=== PATIENT | female | born 1990 | race Caucasian/White ===

== ENCOUNTER → 2017-09-18 | Outpatient (CLI) | payer OTHER ==
[~2017-09-18] MED LIST: BUPRENORPHINE HC2 MG SL; CEPH500 PO; CYCL10 PO; IBUP600 PO; Norco 5-325 Ta1 EACH PO; Percocet 5-3251 EACH PO; Prednisone20 MG PO; Robaxin500 MG PO; SERT25 PO; Verotin-Gr Cap1 EACH PO; Zofran Odt8 MG SL
[2017-09-18 12:56] LABS: U Buprenorphine Screen DETECTED; U Cannabinoids Screen DETECTED
[2017-09-18 12:57] LABS: U Amphetamine Screen Not Detected; U Barbituate Screen Not Detected; U Benzodiazapine Screen Not Detected; U Cocaine Screen Not Detected; U Methadone Screen Not Detected; U Methamphetamine Screen Not Detected; U Opiates Screen Not Detected; U Oxycodone Screen Not Detected; U Phencyclidine Screen Not Detected; U Propoxyphene Screen Not Detected
[2017-09-20 22:30] LABS: Norbuprenorphine GCMS 486 ng/mL (NOTDET)
== END | disposition home or self-care (01) ==
LOC: LAB 10:48
PROVIDERS: Obstetrics & Gynecology
DX: F11.21 Opioid dependence, in remission (principal)
CPT/HCPCS: G0480

== ENCOUNTER → 2017-11-12 | Outpatient (CLI) | payer OTHER ==
[2017-11-12 12:49] LABS: U Amphetamine Screen Not Detected; U Barbituate Screen Not Detected; U Benzodiazapine Screen DETECTED; U Buprenorphine Screen DETECTED; U Cannabinoids Screen DETECTED; U Cocaine Screen Not Detected; U Methadone Screen Not Detected; U Methamphetamine Screen Not Detected; U Opiates Screen Not Detected; U Oxycodone Screen Not Detected; U Phencyclidine Screen Not Detected; U Propoxyphene Screen Not Detected
[2017-11-13 21:57] LABS: Alpha Hyrdroxyalprazolam 116.1 ng/mL (NOTDET); Alpha hydroxytriazolam Not Detected (NOTDET); Alprazolam 22.3 ng/mL (NOTDET); Confirm Clonazepam LC/MS Not Detected (NOTDET); Confirm Flunitrazepam LC/MS Not Detected (NOTDET); Diazepam Not Detected (NOTDET); Flurazepam Not Detected (NOTDET); Lorazepam Not Detected (NOTDET); Midazolam Not Detected (NOTDET); Temazepam Not Detected (NOTDET)
[2017-11-14 04:47] LABS: Norbuprenorphine GCMS 463 ng/mL (NOTDET)
== END ==
LOC: LAB 11:34
PROVIDERS: Obstetrics & Gynecology
DX: F11.21 Opioid dependence, in remission (principal)
CPT/HCPCS: G0480

== ENCOUNTER → 2017-11-21 | Outpatient (CLI) | payer OTHER ==
[2017-11-21 16:26] LABS: BASOPHILS ABSOLUTE AUTO 0.04 K/mm3 (0.00-0.23); BASOPHILS PERCENT AUTO 1 % (0-2); EOSINOPHILS ABSOLUTE AUTO 0.12 K/mm3 (0.00-0.68); EOSINOPHILS PERCENT AUTO 2 % (0-6); Hematocrit 39.3 % (33.0-51.0); Hemoglobin 13.3 g/dL (11.5-16.0); IMMATURE GRAN ABSOLUTE AUTO 0.01 K/mm3 (0.00-0.10); IMMATURE GRAN PERCENT AUTO 0 % (0-1); LYMPHOCYTES ABSOLUTE AUTO 2.26 K/mm3 (0.84-5.20); LYMPHOCYTES PERCENT AUTO 28 % (21-46); MONOCYTES ABSOLUTE AUTO 0.42 K/mm3 (0.16-1.47); MONOCYTES PERCENT AUTO 5 % (4-13); Mean Corpuscular HGB 28.4 pg (26.0-34.0); Mean Corpuscular HGB Conc 33.8 g/dL (31.5-36.5); Mean Corpuscular Volume 84 fL (80-100); Mean Platelet Volume 10.5 fL (9.1-12.4); NEUTROPHILS ABSOLUTE AUTO 5.18 K/mm3 (1.96-9.15); NEUTROPHILS PERCENT AUTO 65 % (41-73); Platelet Count 257 K/mm3 (150-400); RDW Coefficient Variation 12.9 % (11.7-14.2); RDW Standard Deviation 39.2 fL (35.1-46.3); Red Blood Cell Count 4.69 M/mm3 (3.80-5.20); White Blood Cell Count 8.03 K/mm3 (4.00-11.30)
[2017-11-21 16:29] LABS: Anion Gap 9 mmol/L (6-16); Blood Urea Nitrogen 9 mg/dL (8-24); Bun/Creatinine Ratio 14.3 (12.0-20.0); CO2, Blood 28 mmol/L (21-32); Calcium, Blood 9.5 mg/dL (8.5-10.1); Chloride, Blood 102 mmol/L (98-108); Creatinine, Blood 0.63 mg/dL (0.40-1.00); Glomerular Filtration Rate >60 (60-); Glucose, Blood 110 mg/dL (70-99); Sodium, Blood 139 mmol/L (136-145)
== END ==
LOC: LAB EV 16:20
PROVIDERS: Family Medicine
DX: R10.30 Lower abdominal pain, unspecified (principal)
CPT/HCPCS: 80048; 85025

== ENCOUNTER 2018-01-28 18:16 | Emergency (ER) | END 2018-01-28 21:25 | disposition home or self-care (01) ==

== ENCOUNTER → 2018-02-27 | Outpatient (CLI) | payer OTHER ==
[2018-02-27 17:43] LABS: U Amphetamine Screen Not Detected; U Barbituate Screen Not Detected; U Benzodiazapine Screen Not Detected; U Buprenorphine Screen DETECTED; U Cannabinoids Screen DETECTED; U Cocaine Screen Not Detected; U Methadone Screen Not Detected; U Methamphetamine Screen Not Detected; U Opiates Screen Not Detected; U Oxycodone Screen Not Detected; U Phencyclidine Screen Not Detected; U Propoxyphene Screen Not Detected
== END | disposition home or self-care (01) ==
LOC: LAB 15:25 → LAB SHORT 15:25
PROVIDERS: Obstetrics & Gynecology
DX: O99.89 Other specified diseases and conditions complicating pregnancy, childbirth and the puerperium (principal); R30.0 Dysuria
CPT/HCPCS: 87086

== ENCOUNTER → 2018-04-15 | Outpatient (CLI) | payer OTHER ==
[2018-04-15 17:58] LABS: U Benzodiazapine Screen DETECTED; U Cannabinoids Screen DETECTED
[2018-04-15 17:59] LABS: U Amphetamine Screen Not Detected; U Barbituate Screen Not Detected; U Buprenorphine Screen DETECTED; U Cocaine Screen Not Detected; U Methadone Screen Not Detected; U Methamphetamine Screen Not Detected; U Opiates Screen Not Detected; U Oxycodone Screen Not Detected; U Phencyclidine Screen Not Detected; U Propoxyphene Screen Not Detected
== END | disposition home or self-care (01) ==
LOC: LAB SHORT 17:31 → LAB 17:31
PROVIDERS: Obstetrics & Gynecology
DX: Z34.82 Encounter for supervision of other normal pregnancy, second trimester (principal); Z3A.18 18 weeks gestation of pregnancy

== ENCOUNTER → 2018-05-06 | Outpatient (CLI) | payer OTHER ==
[2018-05-06 18:20] LABS: U Amphetamine Screen Not Detected; U Barbituate Screen Not Detected; U Benzodiazapine Screen Not Detected; U Cocaine Screen Not Detected; U Methamphetamine Screen Not Detected
[2018-05-06 18:21] LABS: U Buprenorphine Screen DETECTED; U Cannabinoids Screen DETECTED; U Methadone Screen Not Detected; U Opiates Screen Not Detected; U Oxycodone Screen Not Detected; U Phencyclidine Screen Not Detected; U Propoxyphene Screen Not Detected
== END ==
LOC: LAB 16:43 → LAB SHORT 16:43
PROVIDERS: Obstetrics & Gynecology
DX: Z34.82 Encounter for supervision of other normal pregnancy, second trimester (principal); Z3A.21 21 weeks gestation of pregnancy
CPT/HCPCS: G0480

== ENCOUNTER → 2018-05-15 | Outpatient (CLI) | payer OTHER ==
[2018-05-15 18:35] LABS: U Amphetamine Screen Not Detected; U Barbituate Screen Not Detected; U Benzodiazapine Screen DETECTED; U Buprenorphine Screen DETECTED; U Cannabinoids Screen DETECTED; U Cocaine Screen Not Detected; U Methadone Screen Not Detected; U Methamphetamine Screen Not Detected; U Opiates Screen Not Detected; U Oxycodone Screen Not Detected; U Phencyclidine Screen Not Detected; U Propoxyphene Screen Not Detected
== END | disposition home or self-care (01) ==
LOC: LAB 16:36 → LAB SHORT 16:36
PROVIDERS: Obstetrics & Gynecology
DX: Z34.82 Encounter for supervision of other normal pregnancy, second trimester (principal); Z3A.22 22 weeks gestation of pregnancy
CPT/HCPCS: G0480

== ENCOUNTER → 2018-07-10 | Outpatient (CLI) | payer OTHER ==
[2018-07-10 14:32] LABS: U Amphetamine Screen Not Detected; U Barbituate Screen Not Detected; U Benzodiazapine Screen Not Detected; U Buprenorphine Screen DETECTED; U Cannabinoids Screen DETECTED; U Cocaine Screen Not Detected; U Methadone Screen Not Detected; U Methamphetamine Screen Not Detected; U Opiates Screen Not Detected; U Oxycodone Screen Not Detected; U Phencyclidine Screen Not Detected; U Propoxyphene Screen Not Detected
== END | disposition home or self-care (01) ==
LOC: LAB SHORT 11:10
PROVIDERS: Obstetrics & Gynecology
DX: Z34.83 Encounter for supervision of other normal pregnancy, third trimester (principal); R30.0 Dysuria; Z3A.30 30 weeks gestation of pregnancy

== ENCOUNTER → 2018-09-04 | Outpatient (CLI) | payer OTHER ==
[2018-09-04 19:11] LABS: U Amphetamine Screen Not Detected; U Barbituate Screen Not Detected; U Benzodiazapine Screen Not Detected; U Buprenorphine Screen DETECTED; U Cannabinoids Screen DETECTED; U Cocaine Screen Not Detected; U Methadone Screen Not Detected; U Methamphetamine Screen Not Detected; U Opiates Screen Not Detected; U Oxycodone Screen Not Detected; U Phencyclidine Screen Not Detected; U Propoxyphene Screen Not Detected
== END | disposition home or self-care (01) ==
LOC: LAB SHORT 18:06 → LAB 18:06
PROVIDERS: Obstetrics & Gynecology
DX: Z34.83 Encounter for supervision of other normal pregnancy, third trimester (principal); Z3A.38 38 weeks gestation of pregnancy
CPT/HCPCS: G0480

== ENCOUNTER → 2018-09-11 | Outpatient (CLI) | payer OTHER ==
[2018-09-11 18:46] LABS: U Amphetamine Screen Not Detected; U Barbituate Screen Not Detected; U Benzodiazapine Screen Not Detected; U Buprenorphine Screen DETECTED; U Cannabinoids Screen DETECTED; U Cocaine Screen Not Detected; U Methadone Screen Not Detected; U Methamphetamine Screen Not Detected; U Opiates Screen Not Detected; U Oxycodone Screen Not Detected; U Phencyclidine Screen Not Detected; U Propoxyphene Screen Not Detected
== END | disposition home or self-care (01) ==
LOC: LAB SHORT 16:36 → LAB 16:36
PROVIDERS: Obstetrics & Gynecology
DX: Z34.83 Encounter for supervision of other normal pregnancy, third trimester (principal); Z3A.39 39 weeks gestation of pregnancy
CPT/HCPCS: G0480

== ENCOUNTER 2018-09-13 04:43 | Inpatient (IN) | payer OTHER ==
[~2018-09-13] VITALS: Ht 175.3 cm; Wt 69.0 kg
[2018-09-13 05:22] LABS: Source, Urine Clean Catch
[2018-09-13 05:26] LABS: Bilirubin, Urine Neg (Neg); Blood, Urine Neg (Neg); Glucose Qualitative, Urine Neg (Neg); Ketones, Urine 1+ (Neg); Leukocyte Esterase, Urine 1+ (Neg); Nitrite, Urine Neg (Neg); Protein, Urine Neg (Neg); Urobilinogen, Urine NORM (Normal)
[2018-09-13 05:27] LABS: Appearance, Urine Clear (Clear); Color, Urine Yellow (P-Yellow)
[2018-09-13 05:37] LABS: Amorphous Mod (0-Heavy); Bacteria Few /hpf; Red Blood Cells, Urine Not Seen /hpf (0-2); Squamous Epithelial Cells Few /hpf (Few)
[2018-09-13 06:36] LABS: BASOPHILS ABSOLUTE AUTO 0.04 K/mm3 (0.00-0.23); BASOPHILS PERCENT AUTO 0 % (0-2); EOSINOPHILS ABSOLUTE AUTO 0.08 K/mm3 (0.00-0.68); EOSINOPHILS PERCENT AUTO 1 % (0-6); Hematocrit 37.9 % (33.0-51.0); IMMATURE GRAN ABSOLUTE AUTO 0.08 K/mm3 (0.00-0.10); IMMATURE GRAN PERCENT AUTO 1 % (0-1); LYMPHOCYTES ABSOLUTE AUTO 2.49 K/mm3 (0.84-5.20); LYMPHOCYTES PERCENT AUTO 15 % (21-46); MONOCYTES ABSOLUTE AUTO 1.19 K/mm3 (0.16-1.47); MONOCYTES PERCENT AUTO 7 % (4-13); Mean Corpuscular HGB 29.4 pg (26.0-34.0); Mean Corpuscular HGB Conc 34.3 g/dL (31.5-36.5); Mean Corpuscular Volume 86 fL (80-100); Mean Platelet Volume 10.1 fL (9.1-12.4); NEUTROPHILS PERCENT AUTO 77 % (41-73); Platelet Count 251 K/mm3 (150-400); Red Blood Cell Count 4.42 M/mm3 (3.80-5.20); White Blood Cell Count 16.88 K/mm3 (4.00-11.30)
--- NOTE | 2018-09-13 17:30 | NUR ---
REPORT TO FROILAN RN
[2018-09-14 07:04] LABS: BASOPHILS ABSOLUTE AUTO 0.06 K/mm3 (0.00-0.23); BASOPHILS PERCENT AUTO 0 % (0-2); EOSINOPHILS ABSOLUTE AUTO 0.16 K/mm3 (0.00-0.68); EOSINOPHILS PERCENT AUTO 1 % (0-6); Hematocrit 37.3 % (33.0-51.0); Hemoglobin 12.3 g/dL (11.5-16.0); IMMATURE GRAN ABSOLUTE AUTO 0.06 K/mm3 (0.00-0.10); IMMATURE GRAN PERCENT AUTO 0 % (0-1); LYMPHOCYTES ABSOLUTE AUTO 2.99 K/mm3 (0.84-5.20); LYMPHOCYTES PERCENT AUTO 22 % (21-46); MONOCYTES ABSOLUTE AUTO 1.43 K/mm3 (0.16-1.47); MONOCYTES PERCENT AUTO 11 % (4-13); Mean Corpuscular HGB 28.9 pg (26.0-34.0); Mean Corpuscular Volume 88 fL (80-100); Mean Platelet Volume 9.9 fL (9.1-12.4); NEUTROPHILS ABSOLUTE AUTO 8.95 K/mm3 (1.96-9.15); NEUTROPHILS PERCENT AUTO 66 % (41-73); Platelet Count 220 K/mm3 (150-400); RDW Coefficient Variation 13.2 % (11.7-14.2); RDW Standard Deviation 41.5 fL (35.1-46.3); Red Blood Cell Count 4.25 M/mm3 (3.80-5.20); White Blood Cell Count 13.65 K/mm3 (4.00-11.30)
--- NOTE | 2018-09-15 12:20 | NUR ---
CONSULT BEFORE DISCHARGE HOME. BABY IS AT AN 8% WT LOSS TODAY AND MOMS MILK IS STARTING TO COME IN ALREADY. DR ANTONIO INSTRUCTED TO OFFER FORMULA SUPPLEMENTS FOR WT LOSS. INSTRUCTED PARENTS HOW TO USE FEEDING TUBE WITH SYRINGE OF FORMULA, EITHER FINGER FEED, OR OFFER WHILE SHE IS LATCHED AT BREAST, ONLY 10CC/FEEDING. HAS RECHECK SCHEDULED IN 24 HOURS IN [facility]. INSTRUCT/DEMO POSITIONING TO OBTAIN A DEEPER ASYMETRIC LATCH AND FURTHER WIDEN UNTIL COMFORTABLE AND MOM IS ABLE TO RETURN THE DEMO. INSTRUCT IN CHANGES TO EXPECT DURING THE FIRST WEEK WITH BABY AND WITH FEEDINGS AND REFERRED TO PAGE 18 IN [facility] FOR PHOTOS AND INFORMATION. BOTH PARENTS ATTENTIVE TO TEACHING AND QUESTIONS ANSWERED.
--- NOTE | 2018-09-15 17:15 | NUR ---
DISCHARGE DC HOME STABLE WITH FAMILY. PT VERBALIZES UNDERSTANDING OF DISCHARGE INSTRUCTIONS AND FOLLOW UP APPOINTMENTS. NO QUESTIONS OR CONCERNS. WILL RETURN TOMORROW FOR FOLLOW UP.
== END 2018-09-15 16:58 | disposition home or self-care (01) | DRG 807 ==
LOC: OBS 04:43 → BC 04:45 → OBS 06:10 → BC 06:12
PROVIDERS: ADMIT Obstetrics & Gynecology
PROC: 10E0XZZ Delivery of Products of Conception, External Approach (ICD-10-PCS; principal; 2018-09-13)
PROC: 3E0234Z Introduction of Serum, Toxoid and Vaccine into Muscle, Percutaneous Approach (ICD-10-PCS; 2018-09-13)
DX: O99.324 Drug use complicating childbirth (principal); Z37.0 Single live birth; F11.90 Opioid use, unspecified, uncomplicated; Z3A.39 39 weeks gestation of pregnancy; Z23 Encounter for immunization
CPT/HCPCS: 36415; 59025; 81001; 85025; 87086; G0480; J1885; J2590; J7120

== ENCOUNTER → 2018-09-30 | Outpatient (CLI) | payer OTHER ==
[2018-09-30 19:00] LABS: U Amphetamine Screen Not Detected; U Barbituate Screen Not Detected; U Benzodiazapine Screen Not Detected; U Buprenorphine Screen DETECTED; U Cannabinoids Screen DETECTED; U Cocaine Screen Not Detected; U Methadone Screen Not Detected; U Methamphetamine Screen Not Detected; U Opiates Screen Not Detected; U Oxycodone Screen Not Detected; U Phencyclidine Screen Not Detected; U Propoxyphene Screen Not Detected
== END | disposition home or self-care (01) ==
LOC: LAB SHORT 15:03 → LAB 15:03
PROVIDERS: Obstetrics & Gynecology
DX: F11.21 Opioid dependence, in remission (principal)
CPT/HCPCS: G0480

== ENCOUNTER → 2018-10-31 | Outpatient (CLI) | payer OTHER ==
[2018-11-03 15:06] LABS: HPV 16 Negative (Negative); HPV 18 Negative (Negative); HPV OTHER HR TYPES Positive (Negative)
== END ==
LOC: LAB SHORT 14:08 → LAB 14:08
PROVIDERS: Obstetrics & Gynecology
DX: R87.611 Atypical squamous cells cannot exclude high grade squamous intraepithelial lesion on cytologic smear of cervix (ASC-H) (principal); R87.810 Cervical high risk human papillomavirus (HPV) DNA test positive
CPT/HCPCS: 87624; 87625; 88142

== ENCOUNTER → 2018-10-31 | Outpatient (CLI) | payer OTHER | LOC: LAB SHORT 14:50 → PLD 14:50 | DX: N87.1 Moderate cervical dysplasia (principal) | CPT/HCPCS: 88305 ==

== ENCOUNTER → 2018-12-10 | Outpatient (CLI) | payer OTHER | END | disposition home or self-care (01) | LOC: LAB 19:05 → LAB SHORT 19:05 | DX: R30.0 Dysuria (principal) | CPT/HCPCS: 87086 ==

== ENCOUNTER → 2019-04-01 | Outpatient (CLI) | payer OTHER ==
[2019-04-01 17:34] LABS: U Cannabinoids Screen DETECTED; U Opiates Screen DETECTED
[2019-04-01 17:35] LABS: U Amphetamine Screen Not Detected; U Barbituate Screen Not Detected; U Benzodiazapine Screen Not Detected; U Buprenorphine Screen DETECTED; U Cocaine Screen Not Detected; U Methadone Screen Not Detected; U Methamphetamine Screen Not Detected; U Oxycodone Screen Not Detected; U Phencyclidine Screen Not Detected; U Propoxyphene Screen Not Detected
== END | disposition home or self-care (01) ==
LOC: LAB SHORT 16:28 → LAB 16:28
PROVIDERS: Obstetrics & Gynecology
DX: F11.21 Opioid dependence, in remission (principal)
CPT/HCPCS: G0480

== ENCOUNTER → 2019-04-30 | Outpatient (CLI) | payer OTHER ==
[2019-05-05 15:06] LABS: HPV 16 Negative (Negative); HPV 18 Negative (Negative); HPV OTHER HR TYPES Negative (Negative)
== END | disposition home or self-care (01) ==
LOC: LAB 16:10 → LAB SHORT 16:10
PROVIDERS: Obstetrics & Gynecology
DX: N72 Inflammatory disease of cervix uteri (principal); R87.810 Cervical high risk human papillomavirus (HPV) DNA test positive; R87.612 Low grade squamous intraepithelial lesion on cytologic smear of cervix (LGSIL)
CPT/HCPCS: 87624; 88142; 88305

== ENCOUNTER → 2019-08-17 | Outpatient (CLI) | payer OTHER ==
[~2019-08-17] MED LIST changes: +Keflex500 MG PO
[2019-08-17 18:00] LABS: U Amphetamine Screen Not Detected; U Barbituate Screen Not Detected; U Benzodiazapine Screen DETECTED; U Buprenorphine Screen DETECTED; U Cannabinoids Screen DETECTED; U Cocaine Screen Not Detected; U Methadone Screen Not Detected; U Methamphetamine Screen Not Detected; U Opiates Screen Not Detected; U Oxycodone Screen Not Detected; U Phencyclidine Screen Not Detected; U Propoxyphene Screen Not Detected
== END | disposition home or self-care (01) ==
LOC: LAB 12:00 → LAB SHORT 12:00
PROVIDERS: Obstetrics & Gynecology
DX: F11.21 Opioid dependence, in remission (principal)
CPT/HCPCS: G0480

== ENCOUNTER 2019-09-16 14:20 | Emergency (ER) | payer OTHER ==
[~2019-09-16] VITALS: Ht 175.3 cm; Wt 64.4 kg
[~2019-09-16 14:20] MED LIST changes: -Keflex500 MG PO
[2019-09-16 14:56] LABS: BASOPHILS ABSOLUTE AUTO 0.02 K/mm3 (0.00-0.23); BASOPHILS PERCENT AUTO 0 % (0-2); EOSINOPHILS ABSOLUTE AUTO 0.11 K/mm3 (0.00-0.68); EOSINOPHILS PERCENT AUTO 2 % (0-6); Hematocrit 42.3 % (33.0-51.0); Hemoglobin 14.1 g/dL (11.5-16.0); IMMATURE GRAN ABSOLUTE AUTO 0.01 K/mm3 (0.00-0.10); IMMATURE GRAN PERCENT AUTO 0 % (0-1); LYMPHOCYTES ABSOLUTE AUTO 1.68 K/mm3 (0.84-5.20); LYMPHOCYTES PERCENT AUTO 24 % (21-46); MONOCYTES PERCENT AUTO 6 % (4-13); Mean Corpuscular HGB 28.9 pg (26.0-34.0); Mean Corpuscular HGB Conc 33.3 g/dL (31.5-36.5); Mean Corpuscular Volume 87 fL (80-100); Mean Platelet Volume 9.9 fL (9.1-12.4); NEUTROPHILS ABSOLUTE AUTO 4.73 K/mm3 (1.96-9.15); NEUTROPHILS PERCENT AUTO 68 % (41-73); Platelet Count 221 K/mm3 (150-400); RDW Coefficient Variation 12.8 % (11.7-14.2); RDW Standard Deviation 40.5 fL (35.1-46.3); Red Blood Cell Count 4.88 M/mm3 (3.80-5.20); White Blood Cell Count 6.95 K/mm3 (4.00-11.30)
[2019-09-16 15:17] LABS: Source, Urine Clean Catch
[2019-09-16 15:20] LABS: Bilirubin, Urine Neg (Neg); Blood, Urine Neg (Neg); Glucose Qualitative, Urine Neg (Neg); Ketones, Urine Neg (Neg); Leukocyte Esterase, Urine 2+ (Neg); Nitrite, Urine Neg (Neg); Protein, Urine Neg (Neg); Specific Gravity, Urine 1.015 (1.003-1.022); Urobilinogen, Urine NORM (Normal)
[2019-09-16 15:29] LABS: Alanine Aminotransfer (ALT/SGP 19 U/L (12-78); Albumin, Blood 4.4 g/dL (3.4-5.0); Albumin/Globulin Ratio 1.1 (0.8-1.8); Alk Phos 61 U/L (50-136); Anion Gap 4 mmol/L (6-16); Aspartate Aminotrans (AST/SGOT 14 U/L (12-37); Bilirubin, Total 0.5 mg/dL (0.1-1.0); Blood Urea Nitrogen 9 mg/dL (8-24); Bun/Creatinine Ratio 14.8 (12.0-20.0); CO2, Blood 26 mmol/L (21-32); Calcium, Blood 9.4 mg/dL (8.5-10.1); Chloride, Blood 107 mmol/L (98-108); Creatinine, Blood 0.61 mg/dL (0.40-1.00); Glomerular Filtration Rate >60 (60-); Glucose, Blood 91 mg/dL (70-99); Potassium, Blood 3.7 mmol/L (3.5-5.5); Sodium, Blood 137 mmol/L (136-145); Total Protein, Blood 8.4 g/dL (6.4-8.2)
[2019-09-16 15:30] LABS: Appearance, Urine Clear (Clear); Color, Urine Yellow (P-Yellow)
[2019-09-16 15:33] LABS: Bacteria Mod /hpf; Red Blood Cells, Urine 0-2 /hpf (0-2); Squamous Epithelial Cells Few /hpf (Few)
[2019-09-16 15:49] LABS: Beta HCG, Quantitative, Serum 11738 mIU/mL (0-3)
[2019-09-16] MEDS ORDERED: Keflex500 MG PO (16:29)
== END 2019-09-16 16:42 | disposition home or self-care (01) ==
LOC: ER 14:20
PROVIDERS: Physician Assistant
DX: O20.8 Other hemorrhage in early pregnancy (principal); Z3A.09 9 weeks gestation of pregnancy; O23.41 Unspecified infection of urinary tract in pregnancy, first trimester; Z87.891 Personal history of nicotine dependence
CPT/HCPCS: 36415; 76801; 76817; 80053; 81001; 84702; 84703; 85025; 87086; 99284-25

== ENCOUNTER → 2019-09-28 | Outpatient (CLI) | payer OTHER ==
[~2019-09-28] MED LIST changes: +Keflex500 MG PO
[2019-09-28 18:17] LABS: U Cannabinoids Screen DETECTED
[2019-09-28 18:18] LABS: U Amphetamine Screen Not Detected; U Barbituate Screen Not Detected; U Benzodiazapine Screen Not Detected; U Buprenorphine Screen DETECTED; U Cocaine Screen Not Detected; U Methadone Screen Not Detected; U Methamphetamine Screen Not Detected; U Opiates Screen Not Detected; U Oxycodone Screen Not Detected; U Phencyclidine Screen Not Detected; U Propoxyphene Screen Not Detected
[2019-09-30 22:06] LABS: CHLAMYDIA TRACHOMATIS, NAA Negative (Negative); NEISSERIA GONORRHOEAE, NAA Negative (Negative)
== END | disposition home or self-care (01) ==
LOC: LAB SHORT 15:28 → LAB 15:28
PROVIDERS: Obstetrics & Gynecology
DX: Z34.81 Encounter for supervision of other normal pregnancy, first trimester (principal)

== ENCOUNTER → 2019-10-26 | Outpatient (CLI) | payer OTHER ==
[2019-10-26 17:47] LABS: U Amphetamine Screen Not Detected; U Barbituate Screen Not Detected; U Benzodiazapine Screen Not Detected; U Buprenorphine Screen DETECTED; U Cannabinoids Screen DETECTED; U Cocaine Screen Not Detected; U Methadone Screen Not Detected; U Methamphetamine Screen Not Detected; U Opiates Screen Not Detected; U Oxycodone Screen Not Detected; U Phencyclidine Screen Not Detected; U Propoxyphene Screen Not Detected
== END | disposition home or self-care (01) ==
LOC: LAB 16:14 → LAB SHORT 16:14
PROVIDERS: Obstetrics & Gynecology
DX: Z34.81 Encounter for supervision of other normal pregnancy, first trimester (principal); Z3A.11 11 weeks gestation of pregnancy

== ENCOUNTER → 2019-11-04 | Outpatient (CLI) | payer OTHER ==
[2019-11-04 18:34] LABS: U Amphetamine Screen Not Detected; U Barbituate Screen Not Detected; U Benzodiazapine Screen DETECTED; U Cannabinoids Screen DETECTED; U Cocaine Screen Not Detected; U Methadone Screen Not Detected; U Methamphetamine Screen Not Detected; U Opiates Screen Not Detected; U Oxycodone Screen Not Detected; U Phencyclidine Screen Not Detected; U Propoxyphene Screen Not Detected
[2019-11-04 18:35] LABS: U Buprenorphine Screen DETECTED
== END | disposition home or self-care (01) ==
LOC: LAB SHORT 15:40 → LAB 15:40
PROVIDERS: Obstetrics & Gynecology
DX: Z34.81 Encounter for supervision of other normal pregnancy, first trimester (principal); Z3A.12 12 weeks gestation of pregnancy
CPT/HCPCS: G0480

== ENCOUNTER → 2019-12-21 | Outpatient (CLI) | payer OTHER ==
[2019-12-21 19:27] LABS: U Amphetamine Screen Not Detected; U Barbituate Screen Not Detected; U Benzodiazapine Screen Not Detected; U Cannabinoids Screen DETECTED; U Cocaine Screen Not Detected; U Methadone Screen Not Detected; U Methamphetamine Screen Not Detected; U Opiates Screen Not Detected; U Oxycodone Screen Not Detected; U Phencyclidine Screen Not Detected; U Propoxyphene Screen Not Detected
[2019-12-21 19:28] LABS: U Buprenorphine Screen DETECTED
== END | disposition home or self-care (01) ==
LOC: LAB SHORT 18:15 → LAB 18:15
PROVIDERS: Obstetrics & Gynecology
DX: Z34.82 Encounter for supervision of other normal pregnancy, second trimester (principal); Z3A.19 19 weeks gestation of pregnancy

== ENCOUNTER → 2020-02-02 | Outpatient (CLI) | payer OTHER ==
[2020-02-02 14:12] LABS: U Cannabinoids Screen DETECTED
[2020-02-02 14:13] LABS: U Amphetamine Screen Not Detected; U Barbituate Screen Not Detected; U Benzodiazapine Screen DETECTED; U Buprenorphine Screen DETECTED; U Cocaine Screen Not Detected; U Methadone Screen Not Detected; U Methamphetamine Screen Not Detected; U Opiates Screen Not Detected; U Oxycodone Screen Not Detected; U Phencyclidine Screen Not Detected; U Propoxyphene Screen Not Detected
== END | disposition home or self-care (01) ==
LOC: LAB 11:57 → LAB SHORT 11:57
PROVIDERS: Obstetrics & Gynecology
DX: Z34.82 Encounter for supervision of other normal pregnancy, second trimester (principal); Z3A.25 25 weeks gestation of pregnancy

== ENCOUNTER → 2020-04-07 | Outpatient (CLI) | payer OTHER ==
[2020-04-07 17:56] LABS: U Amphetamine Screen Not Detected; U Barbituate Screen Not Detected; U Benzodiazapine Screen Not Detected; U Buprenorphine Screen DETECTED; U Cannabinoids Screen DETECTED; U Cocaine Screen Not Detected; U Methadone Screen Not Detected; U Methamphetamine Screen Not Detected; U Opiates Screen Not Detected; U Oxycodone Screen Not Detected; U Phencyclidine Screen Not Detected; U Propoxyphene Screen Not Detected
== END | disposition home or self-care (01) ==
LOC: LAB 16:29 → LAB SHORT 16:29
PROVIDERS: Obstetrics & Gynecology
DX: Z34.83 Encounter for supervision of other normal pregnancy, third trimester (principal); Z3A.35 35 weeks gestation of pregnancy
CPT/HCPCS: G0480

== ENCOUNTER → 2020-04-27 | Outpatient (CLI) | payer OTHER ==
[~2020-04-27] MED LIST changes: +IBUP800 PO
[2020-04-28 13:00] LABS: U Amphetamine Screen Not Detected; U Barbituate Screen Not Detected; U Benzodiazapine Screen Not Detected; U Buprenorphine Screen DETECTED; U Cannabinoids Screen DETECTED; U Cocaine Screen Not Detected; U Methadone Screen Not Detected; U Methamphetamine Screen Not Detected; U Opiates Screen Not Detected; U Oxycodone Screen Not Detected; U Phencyclidine Screen Not Detected; U Propoxyphene Screen Not Detected
== END | disposition home or self-care (01) ==
LOC: LAB SHORT 17:10 → LAB 17:10
PROVIDERS: Obstetrics & Gynecology
DX: F11.21 Opioid dependence, in remission (principal)
CPT/HCPCS: G0480

== ENCOUNTER 2020-05-07 00:49 | Inpatient (IN) | payer OTHER ==
[~2020-05-07] VITALS: Ht 175.3 cm; Wt 73.6 kg
[~2020-05-07 00:49] MED LIST changes: -IBUP800 PO
[2020-05-07 01:14] LABS: BASOPHILS ABSOLUTE AUTO 0.05 K/mm3 (0.00-0.23); BASOPHILS PERCENT AUTO 0 % (0-2); EOSINOPHILS PERCENT AUTO 1 % (0-6); Hematocrit 36.9 % (33.0-51.0); Hemoglobin 12.3 g/dL (11.5-16.0); IMMATURE GRAN ABSOLUTE AUTO 0.06 K/mm3 (0.00-0.10); IMMATURE GRAN PERCENT AUTO 0 % (0-1); LYMPHOCYTES ABSOLUTE AUTO 2.51 K/mm3 (0.84-5.20); LYMPHOCYTES PERCENT AUTO 16 % (21-46); MONOCYTES ABSOLUTE AUTO 1.09 K/mm3 (0.16-1.47); MONOCYTES PERCENT AUTO 7 % (4-13); Mean Corpuscular HGB 28.3 pg (26.0-34.0); Mean Corpuscular HGB Conc 33.3 g/dL (31.5-36.5); Mean Corpuscular Volume 85 fL (80-100); NEUTROPHILS ABSOLUTE AUTO 12.33 K/mm3 (1.96-9.15); NEUTROPHILS PERCENT AUTO 76 % (41-73); Platelet Count 154 K/mm3 (150-400); RDW Coefficient Variation 13.1 % (11.7-14.2); RDW Standard Deviation 39.4 fL (35.1-46.3); Red Blood Cell Count 4.34 M/mm3 (3.80-5.20); White Blood Cell Count 16.14 K/mm3 (4.00-11.30)
[2020-05-07] MEDS ORDERED: SERT25 PO (01:33)
--- NOTE | 2020-05-07 08:45 | NUR ---
PT LAYING IN BED HOLDING NB WHO IS AWAKE AND ROOTING. PT IS ALONE CURRENTLY. DISCUSSED WITH PT ABOUT BUPRENORPHINE USE AND S/S OF WITHDRAWL FOR NB. REPORTED WILL STAY A FEW EXTRA DAYS FOR NB ONLY. EXPAINED BAORDER STATUS. CALLED DR. SAM ABOUT RESTARTING ZOLOFT, ORDER TO START TODAY, AND WILL HAVE BUP ORDERED IF PT NEEDS FOR WITHDRAWL. PT REPORTED WAS TAKING BUP 2MG 1-2 TIMES PER DAY, BUT HAS NOT BEEN TAKING 2X DAY FOR AT LEAST A MONTH. LAST TOOK 4 DAYS AGO FOR TOOTH PAIN. UNDERSTANDS PROCESS. HANDOUT GIVEN TO PT ABOUT ESC.
--- NOTE | 2020-05-07 12:11 | NUR ---
REPORT TO CHUCHO DUDLEY.
[2020-05-07 12:34] LABS: BASOPHILS ABSOLUTE AUTO 0.05 K/mm3 (0.00-0.23); BASOPHILS PERCENT AUTO 0 % (0-2); EOSINOPHILS ABSOLUTE AUTO 0.12 K/mm3 (0.00-0.68); EOSINOPHILS PERCENT AUTO 1 % (0-6); Hematocrit 35.5 % (33.0-51.0); Hemoglobin 11.3 g/dL (11.5-16.0); IMMATURE GRAN ABSOLUTE AUTO 0.05 K/mm3 (0.00-0.10); IMMATURE GRAN PERCENT AUTO 0 % (0-1); LYMPHOCYTES ABSOLUTE AUTO 1.95 K/mm3 (0.84-5.20); LYMPHOCYTES PERCENT AUTO 12 % (21-46); MONOCYTES ABSOLUTE AUTO 1.25 K/mm3 (0.16-1.47); MONOCYTES PERCENT AUTO 8 % (4-13); Mean Corpuscular HGB 27.4 pg (26.0-34.0); Mean Corpuscular HGB Conc 31.8 g/dL (31.5-36.5); Mean Corpuscular Volume 86 fL (80-100); Mean Platelet Volume 11.2 fL (9.1-12.4); NEUTROPHILS ABSOLUTE AUTO 12.39 K/mm3 (1.96-9.15); NEUTROPHILS PERCENT AUTO 78 % (41-73); Platelet Count 192 K/mm3 (150-400); RDW Coefficient Variation 12.9 % (11.7-14.2); Red Blood Cell Count 4.13 M/mm3 (3.80-5.20); White Blood Cell Count 15.81 K/mm3 (4.00-11.30)
[2020-05-08] MEDS ORDERED: IBUP800 PO (11:17)
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
== END 2020-05-08 15:08 | disposition home or self-care (01) | DRG 807 ==
LOC: OBS 00:49 → BC 00:53 → OBS 01:07 → BC 01:09
PROVIDERS: ADMIT Obstetrics & Gynecology
PROC: 10E0XZZ Delivery of Products of Conception, External Approach (ICD-10-PCS; principal; 2020-05-07)
PROC: 00HU33Z Insertion of Infusion Device into Spinal Canal, Percutaneous Approach (ICD-10-PCS; 2020-05-07)
PROC: 3E0R3BZ Introduction of Anesthetic Agent into Spinal Canal, Percutaneous Approach (ICD-10-PCS; 2020-05-07)
DX: O80 Encounter for full-term uncomplicated delivery (principal); Z37.0 Single live birth; Z3A.39 39 weeks gestation of pregnancy; Z87.891 Personal history of nicotine dependence
CPT/HCPCS: 36415; 85025; J0290; J1885; J2210; J2590; J3010; J7120

== ENCOUNTER → 2020-09-13 | Outpatient (CLI) | payer OTHER ==
[~2020-09-13] MED LIST changes: +IBUP800 PO
== END | disposition home or self-care (01) ==
LOC: LAB SHORT 16:29 → LAB 16:29
DX: R30.0 Dysuria (principal); R31.9 Hematuria, unspecified; R39.15 Urgency of urination
CPT/HCPCS: 87086